=== PATIENT | female | born 1965 ===

== ENCOUNTER → 2023-10-19 15:28 | Outpatient (BNVA) | payer OTHER, SELFPAY | PROVIDERS: PCP Nurse Practitioner Family; Referring Provider Nurse Practitioner Family; Visit Provider Specialist | DX: R56.9 Unspecified convulsions (principal); G43.711 Chronic migraine without aura, intractable, with status migrainosus; G31.84 Mild cognitive impairment of uncertain or unknown etiology | CPT/HCPCS: 36415; 82607; 82746; 83003; 84436; 84481; 85651; 86160; 86162; 86235; 86255; 86376 ==